=== PATIENT | female | born 1970 | race Caucasian/White ===

== ENCOUNTER → 2021-12-08 08:56 | Outpatient (BNVA) | payer OTHER, SELFPAY | PROVIDERS: PCP Internal Medicine; Visit Provider Psychiatry & Neurology Neurology ==

== ENCOUNTER → 2022-11-16 09:01 | Outpatient (BNVA) | payer OTHER, SELFPAY | PROVIDERS: PCP Internal Medicine; Visit Provider Psychiatry & Neurology Neurology | DX: M62.838 Other muscle spasm (principal); M79.7 Fibromyalgia; G25.81 Restless legs syndrome ==

== ENCOUNTER → 2023-01-14 15:23 | Outpatient (BNVA) | payer OTHER, SELFPAY | PROVIDERS: PCP Internal Medicine; Visit Provider Psychiatry & Neurology Neurology | DX: G43.709 Chronic migraine without aura, not intractable, without status migrainosus (principal) | CPT/HCPCS: 64615; J0585 ==

== ENCOUNTER 2023-04-20 08:24 | Outpatient (AMB) | payer OTHER, SELFPAY ==
--- NOTE | 2023-04-20 08:33 | MHC.OFFVIS ---
Intake Vital Signs 04/20/23 08:36 Weight 238 lb BP 118/74 Blood Pressure Location Rt brachial Position Sitting Pulse 76 Pulse Source Pulse Oximeter Pulse Oximetry (%) 99 Oxygen Delivery Method Room Air Intake Visit Reasons: BOTOX (B&B)-confirmed Intake Note: Botox Injection Contact Center Associate Required: No Allergies amoxicillin Adverse Reaction (Mild, Verified 04/20/23 08:33) Hives Medication List - Last Reconciled 04/20/23 by Carrie Solomon MD baclofen 20 mg (2 x 10 mg) PO BEDTIME buspirone 10 mg PO BID diclofenac sodium 75 mg PO BID estradiol 1 patch transdermal QWEEK fluticasone propionate 50 mcg/actuation sprays intranasal levothyroxine 125 mcg PO DAILY lorazepam 0.5 mg PO DAILY PRN onabotulinumtoxinA (Botox) 200 units IM [id number] progesterone micronized 100 mg PO DAILY rizatriptan (Maxalt-HOSPITAL NURSE) 10 mg PO Q2-4H PRN sumatriptan succinate mg PO HPI HPI Comments History of Present Illness Details ? 53y/o female comes for treatment of migraines with botox. Her headache frequency has decreased to 8-10 days a monthsinc estarting botox. Her ubrelvy was denied recently . Ubrelvy helps with her unilateral headaches thatt starts in her temporal region, sumatriptan works for headaches that start in the occipital region. But she has side effects with sumatriptan- extreme fatigue, brain fog, weakness, speech is slower and they last for 1 day. ??? Most frequent reported adverse reactions following injection of botox for chronic migraine include neck pain (9%), headache(5%), eyelid ptosis(4%), migraine(4%), muscular weakness(4%), musculuskeletal stiffness(4%), bronchitis(3%), injection site pain (3%), musculoskeletal pain(3%), myalgia(3%), facial paresis(2%), HTN(2%) and muscle spasms(2%) were discussed in detail. ??? Botulinum toxin typeA 200units Lot no [id number] expiration Nov 2025 was diluted with 4 cc of normal saline . ??? Muscles injected- ??? Frontalis 4 sites ??? Procerus 1 site ??? Physical Director- 2 sites ??? Temporalis- 8 sites ??? Occipitalis- 6 sites ??? Cervical paraspinals- 4 sites ??? Trapezius- 6 sites- 10 units each ??? 5 units each in 31 site ??? Total use- 185units ??? Discarded-15units [facility] Medical History Chronic migraine without aura Fibromyalgia Hx of migraines Muscle spasm Obstructive sleep apnea Thyroid activity decreased Tic disorder Surgical History H/O spinal fusion H/O tubal ligation History of ankle surgery History of orthopedic surgery Family History Father Dementia Mother Hypothyroidism (acquired) Lung cancer Social History Alcohol intake: current Alcohol intake frequency: holidays/special occasions only Patient Tobacco Use Status: Former Tobacco user Quit Date: 2005 Physical Exam Vital Signs: Last Vital Signs Pulse 76 04/20/23 08:36 BP 118/74 04/20/23 08:36 Pulse Ox 99 04/20/23 08:36 Oxygen Delivery Method Room Air 04/20/23 08:36 Const General: cooperative, healthy appearing and comfortable Nutritional Appearance: overweight Orientation/consciousness: patient oriented x3 Neck Other: tightness and tight TMJ Neuro Other: No TICS noticed today General: patient oriented x3, gait normal, tone normal, moves all extremities and no focal motor deficits Office Procedures Botulinum toxin Injection 99203 - Migraine Procedure code (CPT) selection complete Office Meds onabotulinumtoxinA Performing Provider: Carrie Solomon MD Administered by: Carrie Solomon MD on 04/20/23 09:48 Dose Route Admin Location Lot Number Expiration Date NDC Embedded Engineer 185 unit subcut [id number] 11/04/25 3629-8675-88 ALLERGAN/BOTOX Comments: see HPI Assessment & Plan Assessment & Plan (1) Chronic migraine without aura: Code(s): G43.709 - Chronic migraine without aura, not intractable, without status migrainosus Plan Patient tolerated the procedure well she will call with any side effects Orders: Orders AMB Botulinum toxin Injection Today G43.709 - Chronic migraine without aura, not intractable, without status migrainosus Medications: New rizatriptan (Maxalt-HOSPITAL NURSE) do not exceed 3 doses per 24 hrs 10 mg PO Q2-4H PRN 12 tabs 6RF migraine headache Coding Level of Care Code Est Pt Level 1 (40871) Diagnoses Chronic migraine without aura G43.709 CPT Codes Botox Injection - Botox 3: 69896 - Migraine ([id number])
[2023-04-20 08:36] VITALS: BP 118/74; PULSE 76; O2SAT 99
== END 2023-04-20 09:01 | disposition home or self-care (01) ==
PROVIDERS: Visit Provider Psychiatry & Neurology Neurology
DX: G43.709 Chronic migraine without aura, not intractable, without status migrainosus (principal)
CPT/HCPCS: 64615

== ENCOUNTER → 2023-04-20 08:24 | Outpatient (BNVA) | payer OTHER, SELFPAY | PROVIDERS: Visit Provider Psychiatry & Neurology Neurology | DX: G43.709 Chronic migraine without aura, not intractable, without status migrainosus (principal); Z79.899 Other long term (current) drug therapy | CPT/HCPCS: 64615; 99211; J0585 ==

== ENCOUNTER 2023-07-22 08:29 | Outpatient (AMB) | payer OTHER, SELFPAY ==
--- NOTE | 2023-07-22 08:50 | A.OFFVIS_ITS ---
Intake Vital Signs 07/22/23 08:51 Height 5 ft 7 in Weight 242 lb 2 oz BMI 37.9 BP 118/76 Blood Pressure Location Lt brachial Position Sitting Respiration 15 Pulse 72 Pulse Source Pulse Oximeter Pulse Oximetry (%) 98 Oxygen Delivery Method Room Air Intake Visit Reasons: BOTOX (B&B)-confirmed Intake Note: Pt presents to the office for Botox injections. Allergies amoxicillin Adverse Reaction (Mild, Verified 07/22/23 08:50) Hives Medication List - Last Reconciled 07/22/23 by Carrie Solomon MD baclofen 20 mg (2 x 10 mg) PO BEDTIME diclofenac sodium 75 mg PO BID fluticasone propionate 50 mcg/actuation sprays intranasal levothyroxine 125 mcg PO DAILY lorazepam 0.5 mg PO DAILY PRN onabotulinumtoxinA (Botox) 200 units IM [id number] rizatriptan (Maxalt-COLLECTIONS OFFICER) 10 mg PO Q2-4H PRN sumatriptan succinate mg PO HPI HPI Comments History of Present Illness Details ? 53y/o female comes for treatment of migraines with botox. Her headache frequency has decreased to 8-10 days a monthsince starting botox. Her ubrelvy was denied recently . Ubrelvy helps with her unilateral headaches thatt starts in her temporal region, sumatriptan works for headaches that start in the occipital region. But she has side effects with sumatriptan- extreme fatigue, brain fog, weakness, speech is slower and they last for 1 day. ??? Most frequent reported adverse reactions following injection of botox for chronic migraine include neck pain (9%), headache(5%), eyelid ptosis(4%), migraine(4%), muscular weakness(4%), musculuskeletal stiffness(4%), bronchitis(3%), injection site pain (3%), musculoskeletal pain(3%), myalgia(3%), facial paresis(2%), HTN(2%) and muscle spasms(2%) were discussed in detail. ??? Botulinum toxin typeA 200units Lot no [id number] expiration Nov 2025 was diluted with 4 cc of normal saline . ??? Muscles injected- ??? Frontalis 4 sites ??? Procerus 1 site ??? Lpn Instructor- 2 sites ??? Temporalis- 8 sites ??? Occipitalis- 6 sites ??? Cervical paraspinals- 4 sites ??? Trapezius- 6 sites- 10 units each ??? 5 units each in 31 site ??? Total use- 185units ??? Discarded-15units [facility] Medical History Chronic migraine without aura Fibromyalgia Hx of migraines Muscle spasm Obstructive sleep apnea Thyroid activity decreased Tic disorder Surgical History History of orthopedic surgery H/O tubal ligation H/O spinal fusion History of ankle surgery Family History Father Dementia Mother Hypothyroidism (acquired) Lung cancer Social History Alcohol intake: current Alcohol intake frequency: holidays/special occasions only Patient Tobacco Use Status: Former Tobacco user Quit Date: 2005 Physical Exam Vital Signs: Last Vital Signs Pulse 72 07/22/23 08:51 Resp 15 07/22/23 08:51 BP 118/76 07/22/23 08:51 Pulse Ox 98 07/22/23 08:51 Oxygen Delivery Method Room Air 07/22/23 08:51 BMI result Body Mass Index 37.9 Const General: cooperative, healthy appearing and comfortable Nutritional Appearance: overweight Orientation/consciousness: patient oriented x3 Neck Other: tightness and tight TMJ Neuro Other: No TICS noticed today General: patient oriented x3, gait normal, tone normal, moves all extremities and no focal motor deficits Office Procedures Botulinum toxin Injection 32046 - Migraine Procedure code (CPT) selection complete Office Meds onabotulinumtoxinA 200 unit solution for injection Performing Provider: Carrie Solomon MD Performing Location: [facility] [place] [facility] Administered by: Carrie Solomon MD on 07/22/23 09:23 Dose Route Admin Location Dispensed Lot Number Expiration Date [facility] Radio Message Router 185 unit subcut 200 units [id number] 11/04/25 7240-2611-45 ALLERGAN/BOTOX Comments: see hpi Assessment & Plan Assessment & Plan (1) Chronic migraine without aura: Code(s): G43.709 - Chronic migraine without aura, not intractable, without status migrainosus Plan Patient tolerated the procedure well she will call with any side effects Orders: Orders AMB Botulinum toxin Injection Today G43.709 - Chronic migraine without aura, not intractable, without status migrainosus Coding Level of Care Code Est Pt Level 1 (06577) Diagnoses Chronic migraine without aura G43.709 CPT Codes Botox Injection - Botox 3: 40194 - Migraine ([id number])
[2023-07-22 08:51] VITALS: BP 118/76; PULSE 72; RESP 15; O2SAT 98; BMI 37.9
== END 2023-07-22 09:16 | disposition home or self-care (01) ==
PROVIDERS: PCP Internal Medicine; Visit Provider Psychiatry & Neurology Neurology
DX: G43.709 Chronic migraine without aura, not intractable, without status migrainosus (principal)
CPT/HCPCS: 64615

== ENCOUNTER → 2023-07-22 08:29 | Outpatient (BNVA) | payer OTHER, SELFPAY | PROVIDERS: PCP Internal Medicine; Visit Provider Psychiatry & Neurology Neurology | DX: G43.709 Chronic migraine without aura, not intractable, without status migrainosus (principal) | CPT/HCPCS: 64615; 99211; J0585 ==

== ENCOUNTER 2023-10-25 10:26 | Outpatient (AMB) | payer OTHER, SELFPAY ==
--- NOTE | 2023-10-25 10:29 | A.OFFVIS_ITS ---
Intake Vital Signs 10/25/23 10:30 Height 5 ft 7 in Weight 231 lb 4 oz BMI 36.2 BP 122/76 Blood Pressure Location Rt brachial Position Sitting Respiration 16 Pulse 90 Pulse Source Pulse Oximeter Pulse Oximetry (%) 97 Oxygen Delivery Method Room Air Intake Visit Reasons: BOTOX (B&B) - Conf Intake Note: Pt presents to the office for Botox injections. Concentrator Operator Required: No Allergies morphine Allergy (Intermediate, Verified 10/25/23 10:36) Itching amoxicillin Adverse Reaction (Mild, Verified 10/25/23 10:30) Hives Medication List - Last Reconciled 10/25/23 by Carrie Solomon MD baclofen 20 mg (2 x 10 mg) PO BEDTIME diclofenac sodium 75 mg PO BID duloxetine (Cymbalta) 60 mg PO DAILY fluticasone propionate 50 mcg/actuation sprays intranasal guanfacine ER 2 mg PO DAILY 30 days levothyroxine 125 mcg PO DAILY lorazepam 0.5 mg PO DAILY PRN onabotulinumtoxinA (Botox) 200 units IM [id number] rizatriptan (Maxalt-MAINSPRING STRIP INSPECTOR) 10 mg PO Q2-4H PRN sumatriptan succinate mg PO HPI HPI Comments History of Present Illness Details ? 53y/o female comes for treatment of migraines with botox. Her headache frequency has decreased to 8-10 days a monthsince starting botox. Her ubrelvy was denied recently . Ubrelvy helps with her unilateral headaches thatt starts in her temporal region, sumatriptan works for headaches that start in the occipital region. But she has side effects with sumatriptan- extreme fatigue, brain fog, weakness, speech is slower and they last for 1 day. How many migraine days prior to botox- 25-30 How long do the migraines last- 1-2 Intensity of [id number]-[id number] ER visits related to migraine- none Effectiveness of botox from last two treatment(s) How many migraine days since receiving treatment: 4-5 Change? in intensity of migraine?decreased Change in frequency of migraine?decreased Change in use of acute medication for migraine?decreased Change in quality of life?improved ER visits related to migraine?none Have at least three months elapsed since last treatment (Last botox date - frequency of injections)07/26 ??? Most frequent reported adverse reactions following injection of botox for chronic migraine include neck pain (9%), headache(5%), eyelid ptosis(4%), migraine(4%), muscular weakness(4%), musculuskeletal stiffness(4%), bronchitis(3%), injection site pain (3%), musculoskeletal pain(3%), myalgia(3%), facial paresis(2%), HTN(2%) and muscle spasms(2%) were discussed in detail. ??? Botulinum toxin typeA 200units Lot no [id number] expiration March 2026 was diluted with 4 cc of normal saline . ??? Muscles injected- ??? Frontalis 4 sites ??? Procerus 1 site ??? Fundraising Specialist- 2 sites ??? Temporalis- 8 sites ??? Occipitalis- 6 sites ??? Cervical paraspinals- 4 sites ??? Trapezius- 6 sites- 10 units each ??? 5 units each in 31 site ??? Total use- 185units ??? Discarded-15units [facility] Medical History Chronic migraine without aura Thyroid activity decreased Tic disorder Muscle spasm Fibromyalgia Obstructive sleep apnea Hx of migraines Surgical History History of orthopedic surgery H/O tubal ligation H/O spinal fusion History of ankle surgery Family History Father Dementia Mother Hypothyroidism (acquired) Lung cancer Social History Alcohol intake: current Alcohol intake frequency: holidays/special occasions only Patient Tobacco Use Status: Former Tobacco user Quit Date: 2005 Physical Exam Vital Signs: Last Vital Signs Pulse 90 10/25/23 10:30 Resp 16 10/25/23 10:30 BP 122/76 10/25/23 10:30 Pulse Ox 97 10/25/23 10:30 Oxygen Delivery Method Room Air 10/25/23 10:30 BMI result Body Mass Index 36.2 Const General: cooperative, healthy appearing and comfortable Nutritional Appearance: overweight Orientation/consciousness: patient oriented x3 Neck Other: tightness and tight TMJ Neuro Other: No TICS noticed today General: patient oriented x3, gait normal, tone normal, moves all extremities and no focal motor deficits Office Procedures Botulinum toxin Injection 72038 - Migraine Procedure code (CPT) selection complete Office Meds onabotulinumtoxinA 200 unit solution for injection Performing Provider: Carrie Solomon MD Performing Location: [facility] [place] [facility] Administered by: Carrie Solomon MD on 10/25/23 10:57 Dose Route Admin Location Dispensed Lot Number Expiration Date [facility] Interior Design Coordinator 185 unit IM 200 units [id number] 03/04/26 0060-7078-23 ALLERGAN/BOTOX Comments: see HPI Assessment & Plan Assessment & Plan (1) Chronic migraine without aura: Code(s): G43.709 - Chronic migraine without aura, not intractable, without status migrainosus Plan Patient tolerated the procedure well she will call with any side effects Orders: Orders AMB Botulinum toxin Injection Today G43.709 - Chronic migraine without aura, not intractable, without status migrainosus Coding Level of Care Code Est Pt Level 1 (05386) Diagnoses Chronic migraine without aura G43.709 CPT Codes Botox Injection - Botox 3: 72691 - Migraine ([id number])
[2023-10-25 10:30] VITALS: BP 122/76; PULSE 90; RESP 16; O2SAT 97; BMI 36.2
== END 2023-10-25 10:58 | disposition home or self-care (01) ==
PROVIDERS: PCP Internal Medicine; Visit Provider Psychiatry & Neurology Neurology
DX: G43.709 Chronic migraine without aura, not intractable, without status migrainosus (principal)
CPT/HCPCS: 64615

== ENCOUNTER → 2023-10-25 10:26 | Outpatient (BNVA) | payer OTHER, SELFPAY | PROVIDERS: PCP Internal Medicine; Visit Provider Psychiatry & Neurology Neurology | DX: G43.709 Chronic migraine without aura, not intractable, without status migrainosus (principal) | CPT/HCPCS: 64615; 99211; J0585 ==

== ENCOUNTER 2024-02-01 09:53 | Outpatient (AMB) | payer OTHER, SELFPAY ==
--- NOTE | 2024-02-01 09:59 | A.OFFVIS_ITS ---
Vital Signs 02/01/24 10:00 Height 5 ft 7 in Weight 230 lb BMI 36.0 BP 122/68 Blood Pressure Location Rt brachial Position Sitting Respiration 16 Pulse 77 Pulse Source Pulse Oximeter Pulse Oximetry (%) 97 Oxygen Delivery Method Room Air Intake Visit Reasons: Botox (B&B)-LVM Intake Note: Pt presents to the office for Botox injections. Poultry Vaccinator Required: No Allergies morphine Allergy (Intermediate, Verified 02/01/24 09:59) Itching amoxicillin Adverse Reaction (Mild, Verified 02/01/24 09:59) Hives Medication List - Last Reconciled 02/01/24 by Carrie Solomon MD baclofen 20 mg (2 x 10 mg) PO BEDTIME diclofenac sodium 75 mg PO BID duloxetine (Cymbalta) 60 mg PO DAILY fluticasone propionate 50 mcg/actuation sprays intranasal guanfacine ER 2 mg PO DAILY 30 days levothyroxine 125 mcg PO DAILY lorazepam 0.5 mg PO DAILY PRN onabotulinumtoxinA (Botox) 200 units IM [id number] rizatriptan (Maxalt-RETAIL GENERAL MANAGER) 10 mg PO Q2-4H PRN semaglutide (weight loss) (Wegovy) 0.25 mg subcut QWEEK sumatriptan succinate mg PO HPI Comments Details: ? 54y/o female comes for treatment of migraines with botox. Her headache frequency has decreased to 8-10 days a monthsince starting botox. How many migraine days prior to botox- 25-30 How long do the migraines last- 1-2 Intensity of [id number]-3-96 ER visits related to migraine- none Effectiveness of botox from last two treatment(s) How many migraine days since receiving treatment: 4-5 Change? in intensity of migraine?decreased Change in frequency of migraine?decreased Change in use of acute medication for migraine?decreased Change in quality of life?improved ER visits related to migraine?none Have at least three months elapsed since last treatment (Last botox date - frequency of injections)10/27 ??? Most frequent reported adverse reactions following injection of botox for chronic migraine include neck pain (9%), headache(5%), eyelid ptosis(4%), migraine(4%), muscular weakness(4%), musculuskeletal stiffness(4%), bronchitis(3%), injection site pain (3%), musculoskeletal pain(3%), myalgia(3%), facial paresis(2%), HTN(2%) and muscle spasms(2%) were discussed in detail. ??? Botulinum toxin typeA 200units Lot no [id number] expiration March 2026 was diluted with 4 cc of normal saline . ??? Muscles injected- ??? Frontalis 4 sites ??? Procerus 1 site ??? Undergraduate Intern- 2 sites ??? Temporalis- 8 sites ??? Occipitalis- 6 sites ??? Cervical paraspinals- 4 sites ??? Trapezius- 6 sites- 10 units each ??? 5 units each in 31 site ??? Total use- 185units ??? Discarded-15units [facility] Medical History Chronic migraine without aura Thyroid activity decreased Tic disorder Muscle spasm Fibromyalgia Obstructive sleep apnea Hx of migraines Surgical History History of orthopedic surgery H/O tubal ligation H/O spinal fusion History of ankle surgery Family History Father Dementia Mother Hypothyroidism (acquired) Lung cancer Social History Alcohol intake: current Alcohol intake frequency: holidays/special occasions only Patient Tobacco Use Status: Former Tobacco user Quit Date: 2005 Physical Exam Vital Signs: Last Vital Signs Pulse 77 02/01/24 10:00 Resp 16 02/01/24 10:00 BP 122/68 02/01/24 10:00 Pulse Ox 97 02/01/24 10:00 Oxygen Delivery Method Room Air 02/01/24 10:00 BMI result Body Mass Index 36.0 Const General: cooperative, healthy appearing and comfortable Nutritional Appearance: overweight Orientation/consciousness: patient oriented x3 Neck Other: tightness and tight TMJ Neuro Other: No TICS noticed today General: patient oriented x3, gait normal, tone normal, moves all extremities and no focal motor deficits Office Procedures Botulinum toxin Injection 54680 - Migraine Procedure code (CPT) selection complete Office Meds onabotulinumtoxinA 200 unit solution for injection Performing Provider: Carrie Sloomon MD Performing Location: [facility] [place] [facility] Administered by: Carrie Solomon MD on 02/01/24 10:25 Dose Route Admin Location Dispensed Lot Number Expiration Date [facility] Circle Shear Operator 200 unit subcut 200 units [id number] 03/04/26 7376-6314-50 ALLERGAN/BOTOX Comments: see HPI Assessment & Plan Assessment & Plan (1) Chronic migraine without aura: Code(s): G43.709 - Chronic migraine without aura, not intractable, without status migrainosus Category: Medical Plan Patient tolerated the procedure well she will call with any side effects Orders: Orders AMB Botulinum toxin Injection Today G43.709 - Chronic migraine without aura, not intractable, without status migrainosus Medications: New onabotulinumtoxinA 200 units subcut ONCE 1 ea 0RF Migraine G43.709 - Chronic migraine without aura, not intractable, without status migrainosus Coding Level of Care Code Est Pt Level 1 (89283) Diagnoses Chronic migraine without aura G43.709 CPT Codes Botox Injection - Botox 3: 59453 - Migraine ([id number])
[2024-02-01 10:00] VITALS: BP 122/68; PULSE 77; RESP 16; O2SAT 97; BMI 36.0
== END 2024-02-01 10:20 | disposition home or self-care (01) ==
PROVIDERS: PCP Internal Medicine; Visit Provider Psychiatry & Neurology Neurology
DX: G43.709 Chronic migraine without aura, not intractable, without status migrainosus (principal)
CPT/HCPCS: 64615

== ENCOUNTER → 2024-02-01 09:53 | Outpatient (BNVA) | payer OTHER, SELFPAY | PROVIDERS: PCP Internal Medicine; Visit Provider Psychiatry & Neurology Neurology | DX: G43.709 Chronic migraine without aura, not intractable, without status migrainosus (principal) | CPT/HCPCS: 64615; 99211; J0585 ==

== ENCOUNTER 2024-05-02 10:25 | Outpatient (AMB) | payer OTHER, SELFPAY ==
--- NOTE | 2024-05-02 10:31 | A.OFFVIS_ITS ---
Vital Signs 05/02/24 10:34 Height 5 ft 7 in Weight 230 lb BMI 36.0 BP 132/76 Blood Pressure Location Rt brachial Position Sitting Respiration 16 Pulse 89 Pulse Source Pulse Oximeter Pulse Oximetry (%) 97 Oxygen Delivery Method Room Air Intake Visit Reasons: Botox-Unable to lvm Intake Note: Pt presents to the office for Botox injections for migraines. Waste Handling Technician Required: No Allergies morphine Allergy (Intermediate, Verified 05/02/24 10:32) Itching amoxicillin Adverse Reaction (Mild, Verified 05/02/24 10:32) Hives Medication List - Last Reconciled 05/02/24 by Carrie Solomon MD baclofen 20 mg (2 x 10 mg) PO BEDTIME diclofenac sodium 75 mg PO BID duloxetine (Cymbalta) 60 mg PO DAILY fluticasone propionate 50 mcg/actuation sprays intranasal guanfacine ER 2 mg PO DAILY 30 days levothyroxine 125 mcg PO DAILY lorazepam 0.5 mg PO DAILY PRN onabotulinumtoxinA (Botox) 200 units IM [id number] rizatriptan (Maxalt-CERAMIC TILE SETTER) 10 mg PO Q2-4H PRN semaglutide (weight loss) (Wegovy) 0.25 mg subcut QWEEK sumatriptan succinate mg PO HPI Comments Details: ? 54y/o female comes for treatment of migraines with botox. Her headache frequency has decreased to 8-10 days a monthsince starting botox. How many migraine days prior to botox- 25-30 How long do the migraines last- 1-2 Intensity of trsburhr-8-31 ER visits related to migraine- none Effectiveness of botox from last two treatment(s) How many migraine days since receiving treatment: 4-5 Change? in intensity of migraine?decreased Change in frequency of migraine?decreased Change in use of acute medication for migraine?decreased Change in quality of life?improved ER visits related to migraine?none Have at least three months elapsed since last treatment (Last botox date - frequency of injections)01/25 ??? Most frequent reported adverse reactions following injection of botox for chronic migraine include neck pain (9%), headache(5%), eyelid ptosis(4%), migraine(4%), muscular weakness(4%), musculuskeletal stiffness(4%), bronchitis(3%), injection site pain (3%), musculoskeletal pain(3%), myalgia(3%), facial paresis(2%), HTN(2%) and muscle spasms(2%) were discussed in detail. ??? Botulinum toxin typeA 200units Lot no [id number] expiration AUG 2026 was diluted with 4 cc of normal saline . ??? Muscles injected- ??? Frontalis 4 sites ??? Procerus 1 site ??? Chute Greaser- 2 sites ??? Temporalis- 8 sites ??? Occipitalis- 6 sites ??? Cervical paraspinals- 4 sites ??? Trapezius- 6 sites- 10 units each ??? 5 units each in 31 site ??? Total use- 185units ??? Discarded-15units COUNTS INCLUDE 234 BEDS AT [facility] Medical History (Updated 05/02/24 @ 10:59 by Carrie Solomon MD) Chronic migraine without aura, intractable, without status migrainosus Chronic migraine without aura Thyroid activity decreased Tic disorder Muscle spasm Fibromyalgia Obstructive sleep apnea Hx of migraines Surgical History History of orthopedic surgery H/O tubal ligation H/O spinal fusion History of ankle surgery Family History Father Dementia Mother Hypothyroidism (acquired) Lung cancer Social History Alcohol intake: current Alcohol intake frequency: holidays/special occasions only Patient Tobacco Use Status: Former Tobacco user Physical Exam Vital Signs: Last Vital Signs Pulse 89 05/02/24 10:34 Resp 16 05/02/24 10:34 BP 132/76 05/02/24 10:34 Pulse Ox 97 05/02/24 10:34 Oxygen Delivery Method Room Air 05/02/24 10:34 BMI result Body Mass Index 36.0 Const General: cooperative, healthy appearing and comfortable Nutritional Appearance: overweight Orientation/consciousness: patient oriented x3 Neck Other: tightness and tight TMJ Neuro Other: No TICS noticed today General: patient oriented x3, gait normal, tone normal, moves all extremities and no focal motor deficits Office Procedures Botulinum toxin Injection 41686 - Migraine Procedure code (CPT) selection complete Office Meds onabotulinumtoxinA 200 unit solution for injection Performing Provider: Carrie Solomon MD Performing Location: [facility] [place] [facility] Administered by: Carrie Solomon MD on 05/02/24 11:01 Dose Route Admin Location Dispensed Lot Number Expiration Date NDC Cycle Director 185 unit subcut 200 units [id number] 08/04/26 5256-1471-62 ALLERGAN/BOTOX Comments: see HPI Assessment & Plan Assessment & Plan (1) Chronic migraine without aura: Code(s): G43.709 - Chronic migraine without aura, not intractable, without status migrainosus Category: Medical (2) Chronic migraine without aura, intractable, without status migrainosus: Code(s): G43.719 - Chronic migraine without aura, intractable, without status migrainosus Category: Medical Plan Patient tolerated the procedure well she will call with any side effects Orders: Orders AMB Botulinum toxin Injection Today G43.719 - Chronic migraine without aura, intractable, without status migrainosus Medications: New onabotulinumtoxinA 200 units subcut ONCE 1 ea 0RF migraine G43.719 - Chronic migraine without aura, intractable, without status migrainosus Coding Level of Care Code Est Pt Level 1 (68993) Diagnoses Chronic migraine without aura G43.709 Chronic migraine without aura, intractable, without status migrainosus G43.719 CPT Codes Botox Injection - Botox 3: 83112 - Migraine ([id number])
[2024-05-02 10:34] VITALS: BP 132/76; PULSE 89; RESP 16; O2SAT 97; BMI 36.0
== END 2024-05-02 10:58 | disposition home or self-care (01) ==
PROVIDERS: PCP Internal Medicine; Visit Provider Psychiatry & Neurology Neurology
DX: G43.719 Chronic migraine without aura, intractable, without status migrainosus (principal)
CPT/HCPCS: 64615

== ENCOUNTER → 2024-05-02 10:25 | Outpatient (BNVA) | payer OTHER, SELFPAY | PROVIDERS: PCP Internal Medicine; Visit Provider Psychiatry & Neurology Neurology | DX: G43.709 Chronic migraine without aura, not intractable, without status migrainosus (principal); G43.719 Chronic migraine without aura, intractable, without status migrainosus | CPT/HCPCS: 64615; 99211; J0585 ==

== ENCOUNTER 2024-08-01 09:55 | Outpatient (AMB) | payer OTHER, SELFPAY ==
--- NOTE | 2024-08-01 09:58 | A.OFFVIS_ITS ---
Vital Signs 08/01/24 10:01 Height 5 ft 7 in Weight 239 lb BMI 37.4 BP 116/80 Blood Pressure Location Rt brachial Position Sitting Pulse 88 Pulse Source Pulse Oximeter Pulse Oximetry (%) 98 Oxygen Delivery Method Room Air Intake Visit Reasons: Botox (B&B) Intake Note: Patient presents for a follow up. ( Botox ) Field Marketing Manager Required: No Accompanied by: Self / Same As Patient Allergies morphine Allergy (Intermediate, Verified 08/01/24 10:01) Itching amoxicillin Adverse Reaction (Mild, Verified 08/01/24 10:01) Hives Medication List - Last Reconciled 08/01/24 by Carrie Solomon MD baclofen 20 mg (2 x 10 mg) PO BEDTIME diclofenac sodium 75 mg PO BID duloxetine (Cymbalta) 60 mg PO DAILY fluticasone propionate 50 mcg/actuation sprays intranasal guanfacine ER 2 mg PO DAILY 30 days levothyroxine 125 mcg PO DAILY lorazepam 0.5 mg PO DAILY PRN onabotulinumtoxinA (Botox) 200 units IM [id number] rizatriptan (Maxalt-REED FIXER) 10 mg PO Q2-4H PRN semaglutide (weight loss) (Wegovy) 0.25 mg subcut QWEEK sumatriptan succinate mg PO HPI Comments Details: ? 54y/o female comes for treatment of migraines with botox. Her headache frequency has decreased to 8-10 days a monthsince starting botox. How many migraine days prior to botox- 25-30 How long do the migraines last- 1-2 Intensity of qxtlweax-0-32 ER visits related to migraine- none Effectiveness of botox from last two treatment(s) How many migraine days since receiving treatment: 4-5 Change? in intensity of migraine?decreased Change in frequency of migraine?decreased Change in use of acute medication for migraine?decreased Change in quality of life?improved ER visits related to migraine?none Have at least three months elapsed since last treatment (Last botox date - frequency of injections)01/25 ??? Most frequent reported adverse reactions following injection of botox for chronic migraine include neck pain (9%), headache(5%), eyelid ptosis(4%), migraine(4%), muscular weakness(4%), musculuskeletal stiffness(4%), bronchitis(3%), injection site pain (3%), musculoskeletal pain(3%), myalgia(3%), facial paresis(2%), HTN(2%) and muscle spasms(2%) were discussed in detail. ??? Botulinum toxin typeA 200units Lot no [id number] expiration Nov 2026 was diluted with 4 cc of normal saline . ??? Muscles injected- ??? Frontalis 4 sites ??? Procerus 1 site ??? Production Wood Craftsman- 2 sites ??? Temporalis- 8 sites ??? Occipitalis- 6 sites ??? Cervical paraspinals- 4 sites ??? Trapezius- 6 sites- 10 units each ??? 5 units each in 31 site ??? Total use- 185units ??? Discarded-15units [facility] Medical History Chronic migraine without aura, intractable, without status migrainosus Chronic migraine without aura Thyroid activity decreased Tic disorder Muscle spasm Fibromyalgia Obstructive sleep apnea Hx of migraines Surgical History History of orthopedic surgery H/O tubal ligation H/O spinal fusion History of ankle surgery Family History Father Dementia Mother Hypothyroidism (acquired) Lung cancer Social History Alcohol intake: current Alcohol intake frequency: holidays/special occasions only Patient Tobacco Use Status: Former Tobacco user Physical Exam Vital Signs: Last Vital Signs Pulse 88 08/01/24 10:01 BP 116/80 08/01/24 10:01 Pulse Ox 98 08/01/24 10:01 Oxygen Delivery Method Room Air 08/01/24 10:01 BMI result Body Mass Index 37.4 Const General: cooperative, healthy appearing and comfortable Nutritional Appearance: overweight Orientation/consciousness: patient oriented x3 Neck Other: tightness and tight TMJ Neuro Other: No TICS noticed today General: patient oriented x3, gait normal, tone normal, moves all extremities and no focal motor deficits Office Procedures Botulinum toxin Injection 51268 - Migraine Procedure code (CPT) selection complete Office Meds onabotulinumtoxinA 200 unit solution for injection Performing Provider: Carrie Solomon MD Performing Location: [facility] [place] [facility] Administered by: Carrie Solomon MD on 08/01/24 11:35 Dose Route Admin Location Dispensed Lot Number Expiration Date ND Clerical Adjuster 200 unit subcut 200 units [id number] 11/04/26 3921-3381-32 ALLERGAN/BOTOX Comments: see HPI Assessment & Plan Assessment & Plan (1) Chronic migraine without aura: Code(s): G43.709 - Chronic migraine without aura, not intractable, without status migrainosus Category: Medical (2) Chronic migraine without aura, intractable, without status migrainosus: Code(s): G43.719 - Chronic migraine without aura, intractable, without status migrainosus Category: Medical Plan Patient tolerated the procedure well she will call with any side effects Orders: Orders AMB Botulinum toxin Injection Today G43.719 - Chronic migraine without aura, intractable, without status migrainosus Medications: New onabotulinumtoxinA 200 units subcut ONCE 1 ea 0RF migraine G43.719 - Chronic migraine without aura, intractable, without status migrainosus Coding Level of Care Code Est Pt Level 1 (54817) Diagnoses Chronic migraine without aura G43.709 Chronic migraine without aura, intractable, without status migrainosus G43.719 CPT Codes Botox Injection - Botox 3: 39260 - Migraine ([id number])
[2024-08-01 10:01] VITALS: BP 116/80; PULSE 88; O2SAT 98; BMI 37.4
== END 2024-08-01 10:24 | disposition home or self-care (01) ==
LOC: HO.HSMS 09:56
PROVIDERS: PCP Internal Medicine; Visit Provider Psychiatry & Neurology Neurology
DX: G43.719 Chronic migraine without aura, intractable, without status migrainosus (principal)
CPT/HCPCS: 64615

== ENCOUNTER → 2024-08-01 09:55 | Outpatient (BNVA) | payer OTHER, SELFPAY | PROVIDERS: PCP Internal Medicine; Visit Provider Psychiatry & Neurology Neurology | DX: G43.719 Chronic migraine without aura, intractable, without status migrainosus (principal) | CPT/HCPCS: 64615; 99211; J0585 ==

== ENCOUNTER 2024-11-27 07:26 | Outpatient (AMB) | payer OTHER, SELFPAY ==
[2024-11-27 07:32] VITALS: PULSE 106; O2SAT 98; BMI 37.4
--- NOTE | 2024-11-27 07:32 | MHC.OFFVIS ---
Vital Signs 11/27/24 07:32 Height 5 ft 7 in Weight 239 lb BMI 37.4 Pulse 106 H Pulse Source Pulse Oximeter Pulse Oximetry (%) 98 Oxygen Delivery Method Room Air Intake Visit Reasons: Botox Intake Note: Patient here for Botox injection Buy and Bill Allergies morphine Allergy (Intermediate, Verified 11/27/24 07:35) Itching amoxicillin Adverse Reaction (Mild, Verified 11/27/24 07:35) Hives Medication List - Last Reconciled 11/27/24 by Carrie Solomon MD aspirin 81 mg PO DAILY baclofen 20 mg (2 x 10 mg) PO BEDTIME diclofenac sodium 75 mg PO BID duloxetine (Cymbalta) 60 mg PO DAILY fluticasone propionate 50 mcg/actuation sprays intranasal guanfacine ER 2 mg PO DAILY 30 days lamotrigine 25 mg PO DAILY levothyroxine 125 mcg PO DAILY levothyroxine (Synthroid) 137 mcg PO DAILY lorazepam 0.5 mg PO DAILY PRN methylphenidate HCl ER 18 mg PO DAILY onabotulinumtoxinA (Botox) 200 units IM [id number] rizatriptan (Maxalt-TOOLSMITH) 10 mg PO Q2-4H PRN ropinirole ER 2 mg PO BEDTIME semaglutide (weight loss) (Wegovy) 0.25 mg subcut QWEEK sumatriptan succinate mg PO HPI Comments Details: ? 54y/o female comes for treatment of migraines with botox. Her headache frequency has decreased to 8-10 days a monthsince starting botox. How many migraine days prior to botox- 25-30 How long do the migraines last- 1-2 Intensity of ydlkgozp-6-56 ER visits related to migraine- none Effectiveness of botox from last two treatment(s) How many migraine days since receiving treatment: 4-5 Change? in intensity of migraine?decreased Change in frequency of migraine?decreased Change in use of acute medication for migraine?decreased Change in quality of life?improved ER visits related to migraine?none Have at least three months elapsed since last treatment (Last botox date - frequency of injections)07/27 ??? Most frequent reported adverse reactions following injection of botox for chronic migraine include neck pain (9%), headache(5%), eyelid ptosis(4%), migraine(4%), muscular weakness(4%), musculuskeletal stiffness(4%), bronchitis(3%), injection site pain (3%), musculoskeletal pain(3%), myalgia(3%), facial paresis(2%), HTN(2%) and muscle spasms(2%) were discussed in detail. ??? Botulinum toxin typeA 200units Lot no [id number] expiration December 2026 was diluted with 4 cc of normal saline . ??? Muscles injected- ??? Frontalis 4 sites ??? Procerus 1 site ??? District Administrator- 2 sites ??? Temporalis- 8 sites ??? Occipitalis- 6 sites ??? Cervical paraspinals- 4 sites ??? Trapezius- 6 sites- 10 units each ??? 5 units each in 31 site ??? Total use- 185units ??? Discarded-15units [facility] Medical History Chronic migraine without aura, intractable, without status migrainosus Chronic migraine without aura Thyroid activity decreased Tic disorder Muscle spasm Fibromyalgia Obstructive sleep apnea Hx of migraines Surgical History History of orthopedic surgery H/O tubal ligation H/O spinal fusion History of ankle surgery Family History Father Dementia Mother Hypothyroidism (acquired) Lung cancer Social History Alcohol intake: current Alcohol intake frequency: holidays/special occasions only Patient Tobacco Use Status: Former Tobacco user Physical Exam Vital Signs: Last Vital Signs Pulse 106 H 11/27/24 07:32 Pulse Ox 98 11/27/24 07:32 Oxygen Delivery Method Room Air 11/27/24 07:32 BMI result Body Mass Index 37.4 Const General: cooperative, healthy appearing and comfortable Nutritional Appearance: overweight Orientation/consciousness: patient oriented x3 Neck Other: tightness and tight TMJ Neuro Other: No TICS noticed today General: patient oriented x3, gait normal, tone normal, moves all extremities and no focal motor deficits Office Procedures Botulinum toxin Injection 67928 - Migraine Procedure code (CPT) selection complete Office Meds onabotulinumtoxinA 200 unit solution for injection Performing Provider: Carrie Solomon MD Performing Location: [facility] [place] [facility] Administered by: Carrie Solomon MD on 11/27/24 08:06 Dose Route Admin Location Dispensed Lot Number Expiration Date [facility] Burial Vault Deliverer And Installer 185 unit subcut 200 units [id number] ALLERGAN/BOTOX Comments: see hpi Assessment & Plan Assessment & Plan (1) Chronic migraine without aura: Code(s): G43.709 - Chronic migraine without aura, not intractable, without status migrainosus Category: Medical Qualifiers: Status migrainosus presence: without status migrainosus Intractability: not intractable Qualified Code(s): G43.709 - Chronic migraine without aura, not intractable, without status migrainosus (2) Chronic migraine without aura, intractable, without status migrainosus: Code(s): G43.719 - Chronic migraine without aura, intractable, without status migrainosus Category: Medical Plan Patient tolerated the procedure well she will call with any side effects Orders: Orders AMB Botulinum toxin Injection Today G43.719 - Chronic migraine without aura, intractable, without status migrainosus Medications: New ropinirole ER 2 mg PO BEDTIME 30 tabs 0RF onabotulinumtoxinA 200 units subcut ONCE 1 ea 0RF migraine G43.719 - Chronic migraine without aura, intractable, without status migrainosus Coding Level of Care Code Est Pt Level 1 (10667) Diagnoses Chronic migraine without aura without status migrainosus, not intractable G43.709 Status migrainosus presence: without status migrainosus Intractability: not intractable Chronic migraine without aura, intractable, without status migrainosus G43.719 CPT Codes Botox Injection - Botox 3: 26025 - Migraine ([id number])
== END 2024-11-27 07:55 | disposition home or self-care (01) ==
PROVIDERS: PCP Internal Medicine; Visit Provider Psychiatry & Neurology Neurology
DX: G43.719 Chronic migraine without aura, intractable, without status migrainosus (principal); G43.709 Chronic migraine without aura, not intractable, without status migrainosus
CPT/HCPCS: 64615

== ENCOUNTER → 2024-11-27 07:26 | Outpatient (BNVA) | payer OTHER, SELFPAY | PROVIDERS: PCP Internal Medicine; Visit Provider Psychiatry & Neurology Neurology | DX: G43.719 Chronic migraine without aura, intractable, without status migrainosus (principal) | CPT/HCPCS: 64615; 99211; J0585 ==

== ENCOUNTER 2025-03-16 07:51 | Outpatient (AMB) | payer OTHER, SELFPAY ==
[2025-03-16 07:57] VITALS: BP 128/88
--- NOTE | 2025-03-16 07:57 | A.OFFVIS_ITS ---
Vital Signs 03/16/25 07:57 Height 5 ft 7 in BP 128/88 Blood Pressure Location Rt brachial Position Sitting Intake Visit Reasons: Botox Intake Note: Patient presents for botox injection practice supplied Allergies morphine Allergy (Intermediate, Verified 11/27/24 07:35) Itching amoxicillin Adverse Reaction (Mild, Verified 11/27/24 07:35) Hives Medication List - Last Reconciled 03/16/25 by Carrie Solomon MD aspirin 81 mg PO DAILY baclofen 20 mg (2 x 10 mg) PO BEDTIME diclofenac sodium 75 mg PO BID duloxetine (Cymbalta) 60 mg PO DAILY fluticasone propionate 50 mcg/actuation sprays intranasal guanfacine ER 2 mg PO DAILY 30 days lamotrigine 25 mg PO DAILY levothyroxine 125 mcg PO DAILY levothyroxine (Synthroid) 137 mcg PO DAILY lorazepam 0.5 mg PO DAILY PRN methylphenidate HCl ER 18 mg PO DAILY onabotulinumtoxinA (Botox) 200 units IM [id number] rizatriptan (Maxalt-CUSTOMER SERVICE REPRESENTATIVE TELLER) 10 mg PO Q2-4H PRN ropinirole ER 2 mg PO BEDTIME semaglutide (weight loss) (Wegovy) 0.25 mg subcut QWEEK sumatriptan succinate mg PO HPI Comments Details: ? 54y/o female comes for treatment of migraines with botox. Her headache frequency has decreased to 8-10 days a monthsince starting botox. How many migraine days prior to botox- 25-30 How long do the migraines last- 1-2 Intensity of pbpxgoqu-3-78 ER visits related to migraine- none Effectiveness of botox from last two treatment(s) How many migraine days since receiving treatment: 4-5 Change? in intensity of migraine?decreased Change in frequency of migraine?decreased Change in use of acute medication for migraine?decreased Change in quality of life?improved ER visits related to migraine?none Have at least three months elapsed since last treatment (Last botox date - frequency of injections)07/27 ??? Most frequent reported adverse reactions following injection of botox for chronic migraine include neck pain (9%), headache(5%), eyelid ptosis(4%), migraine(4%), muscular weakness(4%), musculuskeletal stiffness(4%), bronchitis(3%), injection site pain (3%), musculoskeletal pain(3%), myalgia(3%), facial paresis(2%), HTN(2%) and muscle spasms(2%) were discussed in detail. ??? Botulinum toxin typeA 200units Lot no [id number] expiration January 2027 was diluted with 4 cc of normal saline . ??? Muscles injected- ??? Frontalis 4 sites ??? Procerus 1 site ??? Farmworker Bulbs- 2 sites ??? Temporalis- 8 sites ??? Occipitalis- 6 sites ??? Cervical paraspinals- 4 sites ??? Trapezius- 6 sites- 10 units each ??? 5 units each in 31 site ??? Total use- 185units ??? Discarded-15units [facility] Medical History Chronic migraine without aura, intractable, without status migrainosus Chronic migraine without aura Thyroid activity decreased Tic disorder Muscle spasm Fibromyalgia Obstructive sleep apnea Hx of migraines Surgical History History of orthopedic surgery H/O tubal ligation H/O spinal fusion History of ankle surgery Family History Father Dementia Mother Hypothyroidism (acquired) Lung cancer Social History Alcohol intake: current Alcohol intake frequency: holidays/special occasions only Patient Tobacco Use Status: Former Tobacco user Physical Exam Vital Signs: Last Vital Signs BP 128/88 03/16/25 07:57 Const General: cooperative, healthy appearing and comfortable Nutritional Appearance: overweight Orientation/consciousness: patient oriented x3 Neck Other: tightness and tight TMJ Neuro Other: No TICS noticed today General: patient oriented x3, gait normal, tone normal, moves all extremities and no focal motor deficits Office Procedures Botulinum toxin Injection 06883 - Migraine Procedure code (CPT) selection complete Office Meds onabotulinumtoxinA 200 unit solution for injection Performing Provider: Carrie Solomon MD [place] [facility] [place] [facility] Administered by: Carrie Solomon MD on 03/16/25 08:24 Dose Route Admin Location Dispensed Lot Number Expiration Date ND Biomass Plant Technician 185 unit subcut 200 units [id number] ALLERGAN/BOTOX Comments: see hpi Assessment & Plan Assessment & Plan (1) Chronic migraine without aura: Code(s): G43.709 - Chronic migraine without aura, not intractable, without status migrainosus Category: Medical Qualifiers: Status migrainosus presence: without status migrainosus Intractability: not intractable Qualified Code(s): G43.709 - Chronic migraine without aura, not intractable, without status migrainosus (2) Chronic migraine without aura, intractable, without status migrainosus: Code(s): G43.719 - Chronic migraine without aura, intractable, without status migrainosus Category: Medical Plan Patient tolerated the procedure well she will call with any side effects Orders: Orders AMB Botulinum toxin Injection Today G43.719 - Chronic migraine without aura, intractable, without status migrainosus Medications: New onabotulinumtoxinA 200 units subcut ONCE 1 ea 0RF Migraine G43.719 - Chronic migraine without aura, intractable, without status migrainosus Coding Level of Care Code Est Pt Level 1 (19221) Diagnoses Chronic migraine without aura without status migrainosus, not intractable G43.709 Status migrainosus presence: without status migrainosus Intractability: not intractable Chronic migraine without aura, intractable, without status migrainosus G43.719 CPT Codes Botox Injection - Botox 3: 02742 - Migraine ([id number])
== END 2025-03-16 08:20 | disposition home or self-care (01) ==
LOC: HO.HSMS 07:52
PROVIDERS: PCP Internal Medicine; Visit Provider Psychiatry & Neurology Neurology
DX: G43.719 Chronic migraine without aura, intractable, without status migrainosus (principal)
CPT/HCPCS: 64615

== ENCOUNTER → 2025-03-16 07:51 | Outpatient (BNVA) | payer OTHER, SELFPAY | PROVIDERS: PCP Internal Medicine; Visit Provider Psychiatry & Neurology Neurology | DX: G43.719 Chronic migraine without aura, intractable, without status migrainosus (principal); F95.9 Tic disorder, unspecified; M79.7 Fibromyalgia; G47.33 Obstructive sleep apnea (adult) (pediatric); Z79.82 Long term (current) use of aspirin; Z79.890 Hormone replacement therapy; Z79.899 Other long term (current) drug therapy; Z87.891 Personal history of nicotine dependence | CPT/HCPCS: 64615; 99211; J0585 ==

== ENCOUNTER 2025-06-19 07:39 | Outpatient (AMB) | payer OTHER, SELFPAY ==
--- NOTE | 2025-06-19 07:40 | A.OFFVIS_ITS ---
Vital Signs 06/19/25 07:41 Height 5 ft 7 in Weight 250 lb 8 oz BMI 39.2 BP 138/82 Blood Pressure Location Rt brachial Position Sitting Pulse 92 Pulse Source Pulse Oximeter Pulse Oximetry (%) 98 Oxygen Delivery Method Room Air Intake Visit Reasons: Botox Intake Note: Botox Goods Layer Required: No Accompanied by: Self / Same As Patient Allergies morphine Allergy (Intermediate, Verified 06/19/25 07:41) Itching amoxicillin Adverse Reaction (Mild, Verified 06/19/25 07:41) Hives Medication List - Last Reconciled 06/19/25 by Carrie Solomon MD albuterol sulfate 90 mcg/actuation 1 puff inhalation Q3H PRN clobetasol 0.05% topical duloxetine (Cymbalta) 60 mg PO DAILY lamotrigine 25 mg PO DAILY levothyroxine (Synthroid) 137 mcg PO DAILY methylphenidate HCl ER 18 mg PO DAILY onabotulinumtoxinA (Botox) 200 units IM [id number] progesterone micronized 100 mg PO BEDTIME rizatriptan (Maxalt-PROGRAM ASSISTANT) 10 mg PO Q2-4H PRN ropinirole ER 2 mg PO BEDTIME sumatriptan succinate mg PO valbenazine (Ingrezza) 40 mg PO .qhs HPI Comments Details: ? 55y/o female comes for treatment of migraines with botox. Her headache frequency has decreased to 8-10 days a monthsince starting botox. How many migraine days prior to botox- 25-30 How long do the migraines last- 1-2 Intensity of wucgfuyl-4-24 ER visits related to migraine- none Effectiveness of botox from last two treatment(s) How many migraine days since receiving treatment: 4-5 Change? in intensity of migraine?decreased Change in frequency of migraine?decreased Change in use of acute medication for migraine?decreased Change in quality of life?improved ER visits related to migraine?none Have at least three months elapsed since last treatment (Last botox date - frequency of injections)07/27 ??? Most frequent reported adverse reactions following injection of botox for chronic migraine include neck pain (9%), headache(5%), eyelid ptosis(4%), migraine(4%), muscular weakness(4%), musculuskeletal stiffness(4%), bronchitis(3%), injection site pain (3%), musculoskeletal pain(3%), myalgia(3%), facial paresis(2%), HTN(2%) and muscle spasms(2%) were discussed in detail. ??? Botulinum toxin typeA 200units Lot no [id number] expiration Aug 2027 was diluted with 4 cc of normal saline . ??? Muscles injected- ??? Frontalis 4 sites ??? Procerus 1 site ??? Tester/Lift Trucker- 2 sites ??? Temporalis- 8 sites ??? Occipitalis- 6 sites ??? Cervical paraspinals- 4 sites ??? Trapezius- 6 sites- 10 units each ??? 5 units each in 31 site ??? Total use- 185units ??? Discarded-15units [facility] Medical History Chronic migraine without aura, intractable, without status migrainosus Chronic migraine without aura Thyroid activity decreased Tic disorder Muscle spasm Fibromyalgia Obstructive sleep apnea Hx of migraines Surgical History History of orthopedic surgery H/O tubal ligation H/O spinal fusion History of ankle surgery Family History Father Dementia Mother Hypothyroidism (acquired) Lung cancer Social History Alcohol intake: current Alcohol intake frequency: holidays/special occasions only Patient Tobacco Use Status: Former Tobacco user Physical Exam Vital Signs: Last Vital Signs Pulse 92 06/19/25 07:41 BP 138/82 06/19/25 07:41 Pulse Ox 98 06/19/25 07:41 Oxygen Delivery Method Room Air 06/19/25 07:41 BMI result Body Mass Index 39.2 Const General: cooperative, healthy appearing and comfortable Nutritional Appearance: overweight Orientation/consciousness: patient oriented x3 Neck Other: tightness and tight TMJ Neuro Other: No TICS noticed today General: patient oriented x3, gait normal, tone normal, moves all extremities and no focal motor deficits Office Procedures Botulinum toxin Injection 99430 - Migraine Procedure code (CPT) selection complete Office Meds onabotulinumtoxinA 200 unit solution for injection Performing Provider: Carrie Solomon MD Performing Location: [facility] [place] [facility] Administered by: Carrie Solomon MD on 06/19/25 08:10 Dose Route Admin Location Dispensed Lot Number Expiration Date [facility] Gas Plant Specialist 185 unit subcut 200 units [id number] ALLERGAN /BOTOX Total Dispensed Waste 200 units 7.5 % Comments: see hpi Assessment & Plan Assessment & Plan (1) Chronic migraine without aura: Code(s): G43.709 - Chronic migraine without aura, not intractable, without status migrainosus Category: Medical Qualifiers: Status migrainosus presence: without status migrainosus Intractability: not intractable Qualified Code(s): G43.709 - Chronic migraine without aura, not intractable, without status migrainosus (2) Chronic migraine without aura, intractable, without status migrainosus: Code(s): G43.719 - Chronic migraine without aura, intractable, without status migrainosus Category: Medical Plan Patient tolerated the procedure well she will call with any side effects Orders: Orders AMB Botulinum toxin Injection Today G43.709 - Chronic migraine without aura, not intractable, without status migrainosus Coding Level of Care Code Est Pt Level 1 (06630) Diagnoses Chronic migraine without aura without status migrainosus, not intractable G43.709 Status migrainosus presence: without status migrainosus Intractability: not intractable Chronic migraine without aura, intractable, without status migrainosus G43.719 CPT Codes Botox Injection - Botox 3: 85750 - Migraine ([id number])
[2025-06-19 07:41] VITALS: BP 138/82; PULSE 92; O2SAT 98; BMI 39.2
== END 2025-06-19 08:06 | disposition home or self-care (01) ==
LOC: HO.HSMS 07:40
PROVIDERS: PCP Internal Medicine; Visit Provider Psychiatry & Neurology Neurology
DX: G43.719 Chronic migraine without aura, intractable, without status migrainosus (principal); G43.709 Chronic migraine without aura, not intractable, without status migrainosus
CPT/HCPCS: 64615

== ENCOUNTER → 2025-06-19 07:39 | Outpatient (BNVA) | payer OTHER, SELFPAY | PROVIDERS: PCP Internal Medicine; Visit Provider Psychiatry & Neurology Neurology | DX: G43.719 Chronic migraine without aura, intractable, without status migrainosus (principal) | CPT/HCPCS: 64615; 99211; J0585 ==

== ENCOUNTER 2025-09-18 07:58 | Outpatient (AMB) | payer OTHER, SELFPAY ==
--- NOTE | 2025-09-18 07:58 | MHC.OFFVIS ---
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 Required: No Accompanied by: Self / Same As Patient Allergies morphine Allergy (Intermediate, Verified 09/18/25 07:59) Itching amoxicillin Adverse Reaction (Mild, Verified 09/18/25 07:59) Hives Medication List - Last Reconciled 09/18/25 by Carrie Solomon MD albuterol sulfate 90 mcg/actuation 1 puff inhalation Q3H PRN clobetasol 0.05% topical duloxetine (Cymbalta) 60 mg PO DAILY estradiol 1 patch transdermal QWEEK lamotrigine 25 mg PO DAILY levothyroxine (Synthroid) 137 mcg PO DAILY methylphenidate HCl ER 27 mg PO QAM onabotulinumtoxinA (Botox) 200 units IM [id number] progesterone micronized 100 mg PO BEDTIME rizatriptan (Maxalt-MEDICATION COORDINATOR) 10 mg PO Q2-4H PRN ropinirole ER 2 mg PO BEDTIME sumatriptan succinate mg PO valbenazine (Ingrezza) 40 mg PO .qhs HPI Comments Details: ? 55y/o female comes for treatment of migraines with botox. Her headache frequency has decreased to 8-10 days a monthsince starting botox. How many migraine days prior to botox- 25-30 How long do the migraines last- 1-2 Intensity of agaczrcj-4-70 ER visits related to migraine- none Effectiveness of botox from last two treatment(s) How many migraine days since receiving treatment: 4-5 Change? in intensity of migraine?decreased Change in frequency of migraine?decreased Change in use of acute medication for migraine?decreased Change in quality of life?improved ER visits related to migraine?none Have at least three months elapsed since last treatment (Last botox date - frequency of injections)07/27 ??? Most frequent reported adverse reactions following injection of botox for chronic migraine include neck pain (9%), headache(5%), eyelid ptosis(4%), migraine(4%), muscular weakness(4%), musculuskeletal stiffness(4%), bronchitis(3%), injection site pain (3%), musculoskeletal pain(3%), myalgia(3%), facial paresis(2%), HTN(2%) and muscle spasms(2%) were discussed in detail. ??? Botulinum toxin typeA 200units Lot no [id number] expiration Sep 2027 was diluted with 4 cc of normal saline . ??? Muscles injected- ??? Frontalis 4 sites ??? Procerus 1 site ??? Boat Crew Deck Hand- 2 sites ??? Temporalis- 8 sites ??? Occipitalis- 6 sites ??? Cervical paraspinals- 4 sites ??? Trapezius- 6 sites- 10 units each ??? 5 units each in 31 site ??? Total use- 185units ??? Discarded-15units [facility] Medical History Chronic migraine without aura, intractable, without status migrainosus Chronic migraine without aura Thyroid activity decreased Tic disorder Muscle spasm Fibromyalgia Obstructive sleep apnea Hx of migraines Surgical History History of orthopedic surgery H/O tubal ligation H/O spinal fusion History of ankle surgery Family History Father Dementia Mother Hypothyroidism (acquired) Lung cancer Social History Alcohol intake: current Alcohol intake frequency: holidays/special occasions only Patient Tobacco Use Status: Former Tobacco user Physical Exam Vital Signs: Last Vital Signs Pulse 88 09/18/25 07:59 BP 132/84 09/18/25 07:59 Pulse Ox 95 09/18/25 07:59 Oxygen Delivery Method Room Air 09/18/25 07:59 BMI result Body Mass Index 39.2 Const General: cooperative, healthy appearing and comfortable Nutritional Appearance: overweight Orientation/consciousness: patient oriented x3 Neck Other: tightness and tight TMJ Neuro Other: No TICS noticed today General: patient oriented x3, gait normal, tone normal, moves all extremities and no focal motor deficits Office Procedures Botulinum toxin Injection 55292 - Migraine Procedure code (CPT) selection complete Office Meds onabotulinumtoxinA 200 unit solution for injection Performing Provider: Carrie Solomon MD Performing Location: [facility] Administered by: Carrie Solomon MD on 09/18/25 08:28 Dose Route Admin Location Dispensed Lot Number Expiration Date [facility] Patient Services Clerk 185 unit subcut 200 units [id number] ALLERGAN/BOTOX Total Dispensed Waste 200 units 7.5 % Comments: see HPI Assessment & Plan Assessment & Plan (1) Chronic migraine without aura: Code(s): G43.709 - Chronic migraine without aura, not intractable, without status migrainosus Category: Medical Qualifiers: Status migrainosus presence: without status migrainosus Intractability: not intractable Qualified Code(s): G43.709 - Chronic migraine without aura, not intractable, without status migrainosus (2) Chronic migraine without aura, intractable, without status migrainosus: Code(s): G43.719 - Chronic migraine without aura, intractable, without status migrainosus Category: Medical Plan Patient tolerated the procedure well she will call with any side effects Orders: Orders AMB Botulinum toxin Injection Today G43.709 - Chronic migraine without aura, not intractable, without status migrainosus Coding Level of Care Code Est Pt Level 1 (34789) Diagnoses Chronic migraine without aura without status migrainosus, not intractable G43.709 Status migrainosus presence: without status migrainosus Intractability: not intractable Chronic migraine without aura, intractable, without status migrainosus G43.719 CPT Codes Botox Injection - Botox 3: 42646 - Migraine ([id number])
[2025-09-18 07:59] VITALS: BP 132/84; PULSE 88; O2SAT 95; BMI 39.2
== END 2025-09-18 08:22 | disposition home or self-care (01) ==
LOC: HO.HSMS 07:58
PROVIDERS: PCP Internal Medicine; Visit Provider Psychiatry & Neurology Neurology
DX: G43.709 Chronic migraine without aura, not intractable, without status migrainosus (principal); G43.719 Chronic migraine without aura, intractable, without status migrainosus
CPT/HCPCS: 64615; 99499

== ENCOUNTER → 2025-09-18 07:58 | Outpatient (BNVA) | payer OTHER, SELFPAY | PROVIDERS: PCP Internal Medicine; Visit Provider Psychiatry & Neurology Neurology | DX: G43.709 Chronic migraine without aura, not intractable, without status migrainosus (principal); G43.719 Chronic migraine without aura, intractable, without status migrainosus; Z87.891 Personal history of nicotine dependence | CPT/HCPCS: 64615; J0585 ==